=== PATIENT | male | born 1960 | race Caucasian/White ===

== ENCOUNTER 2017-04-08 16:12 | Inpatient (IN) | payer SELFPAY ==
[~2017-04-08] VITALS: Ht 182.9 cm; Wt 68.6 kg
[~2017-04-08 16:12] MED LIST: DEXAMETHASONE SOD PHOS 4 MG/ML VIAL IV ONE; GLYCOPYRROLATE 1 MG/5 ML SYRINGE IV PUSH ONE; LIDOCAINE HCL 1% PF 5 ML AMPULE OTHER ONE; MELO7.5T PO; METH750T2 PO; MIDAZOLAM HCL 2 MG/2 ML VIAL IV ONE; NEOSTIGMINE 3 MG/3 ML SYR IV ONE; ONDANSETRON HCL 4 MG/2 ML VIAL IV PUSH ONE; PHENYLEPH/NS 1000 MCG/10 ML SYR IV ONE; PROPOFOL 200 MG/20 ML AMP IV ONE; Z.0.NO CURRENT MEDS; ePHEDrine/NS 25 MG/5 ML SYR IV ONE
[2017-04-08 16:13] VITALS: PULSE 79; RESP 17
[2017-04-08] MEDS ORDERED: SODIUM CHLOR 0.9% 1000 ML INJ 1,000 ML IV SCH (16:14)
[2017-04-08] MEDS ORDERED: MORPHINE SULFATE 4 MG/ML INJ IV PUSH ONE (16:15)
[2017-04-08] MEDS ORDERED: ONDANSETRON HCL 4 MG/2 ML VIAL IVP ONE (16:15)
[2017-04-08] MEDS ORDERED: SODIUM CHLORIDE 0.9% FLUSH 10 ML FLUSH IV FLUSH PRN ×2 (16:15→18:15)
[2017-04-08] MEDS ORDERED: TETANUS/DIPHTHERIA TOXOID ADULT 0.5 ML VIAL IM ONE (16:15)
[2017-04-08] MEDS ORDERED: BUPIVACAINE HCL PF 0.5% 30 ML VIAL INFIL ONE (16:15)
[2017-04-08] MEDS ORDERED: ceFAZolin 2 GM PREMIX 50 ML IV ONE (16:15)
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
[2017-04-08 16:23] VITALS: BP 104/56; PULSE 72; RESP 22; O2SAT 95
--- NOTE | 2017-04-08 16:41 | PD ---
Physical Exam Date Seen by Provider: Apr 08, 2017 Narrative Left thumb amputation Data Data Last Documented VS Vital Signs Date Time Temp Pulse Resp B/P (MAP) Pulse Ox O2 Delivery O2 Flow Rate FiO2 04/08/17 16:23 72 22 104/56 (72) 95 Room Air Orders Orders Complete Blood Count With Diff (04/08/17 16:14) Comprehensive Metabolic Panel (04/08/17 16:14) Prothrombin Time / Inr (Pt) (04/08/17 16:14) Act Partial Throm Time (Ptt) (04/08/17 16:14) Iv Access Insert/Monitor (04/08/17 16:14) Ecg Monitoring (04/08/17 16:14) Oximetry (04/08/17 16:14) NPO (04/08/17 16:14) Morphine Inj (Morphine Inj) (04/08/17 16:15) Ondansetron Inj (Zofran Inj) (04/08/17 16:15) Sodium Chlor 0.9% 1000 Ml Inj (Ns 1000 M (04/08/17 16:14) Sodium Chloride 0.9% Flush (Ns Flush) (04/08/17 16:15) Electrocardiogram (04/08/17 16:14) Tetanus/Diphtheria Tox Adult (Tetanus/Di (04/08/17 16:15) Cefazolin 2 Gm Premix (Ancef 2 Gm Premix (04/08/17 16:15) Bupivacaine Pf 0.5% Inj (Marcaine Pf 0.5 (04/08/17 16:15) Finger ([id number]) (04/08/17 16:17) Ice/Cold Pack (04/08/17 16:17) MDM Supervised Visit with JIMI: Yes Narrative Course I, Dr. Dennis, have reviewed the advance practice practitioner's documentation and am in agreement, met with the patient face to face, made the diagnosis, and the medical decision making was done by me. *My assessment and Findings: This patient has an amputated distal tip of the left thumb Please see Charles Barfield PA-C's note for results of laboratory and radiographic evaluation, ED course, final diagnosis and disposition Diagnosis Primary Impression: Amputation of thumb, left, complicated Qualified Codes: S68.012A - Complete traumatic metacarpophalangeal amputation of left thumb, initial encounter Condition: Stable Vy Dennis MD Apr 08, 2017 16:41
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
[2017-04-08] MEDS ORDERED: ACETAMINOPHEN 1000 MG/100 ML 100 ML IV ONE (17:14)
[2017-04-08] MEDS ORDERED: METOCLOPRAMIDE HCL 10 MG/2 ML VIAL ONE (17:14)
[2017-04-08] MEDS ORDERED: FAMOTIDINE 20 MG/2 ML VIAL ONE (17:16)
[2017-04-08 17:21] LABS: BASOPHIL # 0.1 TH/MM3 (0-0.2); BASOPHIL % 0.7 % (0.0-2.0); EOSINOPHIL # 0.3 TH/MM3 (0-0.4); EOSINOPHIL % 2.6 % (0.0-4.0); HEMATOCRIT 41.7 % (39.0-51.0); HEMO FLAGS DIFF FINAL; LYMPH % 27.1 % (9.0-44.0); LYMPHOCYTE # 3.1 TH/MM3 (1.0-4.8); MEAN CELL VOLUME 94.2 FL (80.0-100.0); MEAN CORPUSCULAR HEMOGLOBIN 32.1 PG (27.0-34.0); MEAN CORPUSCULAR HGB CONC 34.1 % (32.0-36.0); MONO % 8.3 % (0.0-8.0); NEUT % 61.3 % (16.0-70.0); PLATELET COUNT 382 TH/MM3 (150-450); RED BLOOD COUNT 4.43 MIL/MM3 (4.50-5.90); RED CELL DISTRIBUTION WIDTH 14.2 % (11.6-17.2); WHITE BLOOD COUNT 11.5 TH/MM3 (4.0-11.0)
[2017-04-08 17:22] LABS: ALT (GPT) 14 U/L (12-78)
[2017-04-08 17:24] LABS: ALKALINE PHOSPHATASE 85 U/L (45-117); TOTAL BILIRUBIN ADULT 0.3 MG/DL (0.2-1.0)
[2017-04-08 17:31] LABS: APTT (PATIENT) 34.8 SEC (24.3-30.1); PROTHROMBIN TIME - PATIENT 10.9 SEC (9.8-11.6)
[2017-04-08 17:43] LABS: ANION GAP 7 MEQ/L (5-15); AST (GOT) 19 U/L (15-37); BICARBONATE 23.7 MEQ/L (21.0-32.0); BLOOD UREA NITROGEN 13 MG/DL (7-18); CHLORIDE 106 MEQ/L (98-107); GLOMERULAR FILTRATION RATE 77 ML/MIN (>89); POTASSIUM 3.9 MEQ/L (3.5-5.1); SODIUM (NA) 137 MEQ/L (136-145)
[2017-04-08] MEDS ORDERED: DIPH25CA PO (17:45)
[2017-04-08] MEDS ORDERED: TYLE325T PO (17:45)
[2017-04-08 17:53] VITALS: TEMP 98
[2017-04-08] MEDS ORDERED: SENNOSIDES 8.6 MG TAB PO PRN (18:15)
[2017-04-08] MEDS ORDERED: ACETAMINOPHEN/HYDROcodone 325 MG/5 MG TAB PO PRN (18:15)
[2017-04-08] MEDS ORDERED: LACTULOSE SYRUP 20 GM/30 ML CUP PO PRN (18:15)
[2017-04-08] MEDS ORDERED: MAGNESIUM HYDROXIDE SUSP 30 ML CUP PO PRN (18:15)
[2017-04-08] MEDS ORDERED: NALOXONE HCL 0.4 MG/ML AMP IV PUSH PRN (18:15)
[2017-04-08] MEDS ORDERED: ACETAMINOPHEN 325 MG TAB PO PRN (18:15)
[2017-04-08] MEDS ORDERED: HYDROmorphone HCL PF 1 MG/ML VIAL IV PUSH PRN ×3 (18:15)
[2017-04-08] MEDS ORDERED: BISACODYL 10 MG SUPP RECTAL PRN (18:15)
[2017-04-08] MEDS ORDERED: LIDOCAINE HCL 2% 50 ML VIAL ONE (18:23)
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
[2017-04-08] MEDS ORDERED: LORazepam 1 MG TAB PO PRN (18:30)
[2017-04-08] MEDS ORDERED: FLUMAZENIL 0.5 MG/5 ML VIAL IV PUSH PRN (18:30)
[2017-04-08] MEDS ORDERED: LORazepam 2 MG TAB PO PRN (18:30)
[2017-04-08] MEDS ORDERED: LORazepam 2 MG/ML VIAL IV PUSH PRN ×4 (18:30)
[2017-04-08] MEDS ORDERED: ceFAZolin INJ 1,000 MG VIAL ONE (18:35)
--- NOTE | 2017-04-08 20:52 | PD.OP ---
Operative Report Preoperative Diagnosis: (1) Amputation of thumb, left, complicated Postoperative Diagnosis: (1) Amputation of thumb, left, complicated Procedure: exploration, debridement, and palmar advancement flap (Rosalino) cover left thumb Anesthesia: general Surgeon: Don So Ice Platform Supervisor(s): lucretia Operation and Findings: avulsion of the pulp with exposed distal phalanx left thumb Don So MD Apr 08, 2017 20:52
[2017-04-08] MEDS: SODIUM CHLORIDE 0.9% FLUSH 10 ML FLUSH IV FLUSH SCH (21:00)
[2017-04-08] MEDS: ONDANSETRON HCL 4 MG/2 ML VIAL IVP PRN (21:12)
[2017-04-08] MEDS ORDERED: DO NOT ADM ANY ANTICOAGULANT DRUGS PRN (21:15)
[2017-04-08] MEDS: SODIUM CHLOR 0.9% 1000 ML INJ 1,000 ML IV SCH (21:20)
[2017-04-08 22:03] VITALS: BP 111/62; PULSE 67; RESP 18; TEMP 95.5; O2SAT 97
[2017-04-08] MEDS: DOCUSATE SODIUM 50 MG/SENNA 8.6 MG TAB PO SCH (22:11)
--- NOTE | 2017-04-08 22:48 | MB ---
cc: DAYAN MENA MD DATE OF CONSULTATION 04/08/17 REASON FOR CONSULTATION Left thumb amputation. HISTORY OF PRESENT ILLNESS The patient is a 56-year-old right-hand dominant male who presented to the ED with complaints of crushing injury to the left thumb with amputation. 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 The patient brought the amputated part in a separate ice pack. Complains of pain and bleeding from the region. PAST MEDICAL HISTORY/PAST SURGICAL HISTORY As noted. Past surgical history significant for facial and reconstruction surgery. PHYSICAL EXAMINATION The patient is alert, oriented x3. bilateral upper extremity shows multiple skin lesions. Examination of left thumb reveals avulsion type of amputation of the soft tissue part with the exposed distal phalanx. The soft tissue from just distal to the IP joint on the volar aspect along with the distal half of the nail plate and nail are amputated with exposed distal phalanx. He is able to actively flex the IP joint of the thumb. He has intact extension of the IP joint of the thumb. The digital nerve and vessels were exposed within the soft tissue. The amputated part is in a separate ice pack. This consists of avulsed almost pulp tissue with hyponychium and distal half of the nail bed and nail plate. X-rays of the left thumb were reviewed, shows soft tissue defect over the left thumb with exposed distal phalanx. There is a cortical defect along the volar aspect of the distal phalanx tuft region. ASSESSMENT A 56-year-old male with a soft tissue avulsion type amputation of the left thumb with exposed distal phalanx. PLAN Take the patient emergently for surgery which would entail exploration, wash, debridement and flap closure of the exposed distal phalanx. The patient was explained risks and benefits of the procedure. Surgical options given to the patient was either palmar advancement flap versus cross-finger flap. The patient understands the risks and benefits of the procedure. Dayan Mena MD SE/ /9:00 PM /10:36 PM
--- NOTE | 2017-04-08 23:03 | MP ---
cc: DAYAN MENA DATE OF SURGERY 04/08/17 PREOPERATIVE DIAGNOSIS Partial traumatic amputation left thumb. POSTOPERATIVE DIAGNOSIS Partial traumatic amputation left thumb. PROCEDURE Exploration, debridement, palmar advancement flap (Rosalino) for flap closure left thumb. SURGEON Dr. Darcie Mena ANESTHESIA General ESTIMATED BLOOD LOSS Minimal TOURNIQUET TIME 77 minutes at 250 mmHg DISPOSITION To PACU stable. PROCEDURE IN DETAIL The patient is a 56-year-old right-hand dominant male who presented to the ED with complaints of laceration to the left thumb. The patient states he was working at his home and had a crushing injury to the left thumb. The patient avulsed his thumb pulp and presented to the ED with avulsed part of the thumb in a icepack. On examination, he had soft tissue avulsion from the pulp region about 0.5 cm distal to the IP joint extending to the tip and through the half of the nail plate. The nail plate along with the pulp tissue is preserved in the icepack. He had exposed distal phalanx. He had intact flexion and extension of the IP joint of the thumb. X-ray showed avulsion of the soft tissue with exposed distal phalanx. The patient was consented for exploration, wash, revision amputation and flap closure of the left thumb. The patient was explained risks and benefits of the procedure. The patient was brought to the operating room under general anesthesia. The left upper extremity was thoroughly prepped and draped. Limb was exsanguinated using Esmarch tourniquet. Tourniquet was then inflated 250 mmHg. Intraoperative findings included complete avulsion of the pulp about 1 centimeter distal to the IP joint of the thumb and through the half of the nail plate with exposed distal phalanx. The defect measured about 2 cm. An excisional debridement of devitalized tissue and the tip of the distal phalanx was rongeured to a smooth surface. Decision was made to proceed with palmar advancement Rosalino flap. Mid axial incisions were marked along the ulnar and radial aspect of the thumb extending to the MP joint region of the thumb. Incision was made over the proposed incision site. Soft tissue dissection was carried out, in a distal to proximal direction just volar to the flexor tendon sheath. Skin flaps around the skin and subcutaneous flap along with neurovascular bundle were elevated from the volar surface of the thumb up to the MP joint region. The MP and IP joint of the thumb were flexed and mobilized flap was brought in to cover the exposed distal phalanx. I was able to obtain coverage with slight flexion of the MP and IP joint of the thumb. Thorough wash was given. The palmar flap was then approximated to the dorsal soft tissues using 5-0 Vicryl stitches. The lateral and ulnar incisions were then approximated using 5-0 nylon interrupted nylon stitches in an interrupted fashion. Tourniquet was deflated. Total tourniquet time was 77 minutes. He had good distal circulation. The flap was pink. He did have residual wound at the distal tip, but the exposed bone was covered with soft tissues. The wrist and wound will be allowed to heal by secondary intention. About 5 mL of local anesthesia containing. 2% lidocaine __% Marcaine was injected across the base of the dermis digital block. Xeroform bacitracin dressing applied. Bulky hand dressing was applied which was held in place by Sof-Rol and dorsal block splint was applied keeping the MP and IP joint of thumb infection. The patient was recovered, sent to recovery in stable condition. Plan will be to discharge the patient tomorrow and follow up in the office in two days' time. Dayan Mena MD SE/ /8:53 PM /10:50 PM
[2017-04-08 23:13] VITALS: BP 103/58; PULSE 71; RESP 18; TEMP 96.4; O2SAT 95
[2017-04-09 01:32] VITALS: O2SAT 95
[2017-04-09] MEDS: ACETAMINOPHEN/HYDROcodone 325 MG/10 MG TAB PO PRN ×2 (01:37→09:07)
[2017-04-09 03:48] VITALS: BP 105/61; PULSE 75; RESP 18; TEMP 96.7; O2SAT 96
[2017-04-09] MEDS: SODIUM CHLOR 0.9% 1000 ML INJ 1,000 ML IV SCH (04:53)
[2017-04-09] MEDS: HYDROmorphone HCL PF 2 MG/ML VIAL IV PUSH PRN ×3 (05:30→13:24)
[2017-04-09] MEDS: ONDANSETRON HCL 4 MG/2 ML VIAL IVP PRN ×2 (05:36→09:11)
[2017-04-09 06:32] LABS: AUTOMATED NEUTROPHIL # 10.5 TH/MM3 (1.8-7.7); BASOPHIL # 0.1 TH/MM3 (0-0.2); BASOPHIL % 0.9 % (0.0-2.0); HEMATOCRIT 39.3 % (39.0-51.0); HEMO FLAGS DIFF FINAL; LYMPH % 5.5 % (9.0-44.0); LYMPHOCYTE # 0.6 TH/MM3 (1.0-4.8); MEAN CORPUSCULAR HEMOGLOBIN 32.2 PG (27.0-34.0); MEAN CORPUSCULAR HGB CONC 33.9 % (32.0-36.0); MONO % 1.3 % (0.0-8.0); NEUT % 92.3 % (16.0-70.0); PLATELET COUNT 336 TH/MM3 (150-450); RED BLOOD COUNT 4.13 MIL/MM3 (4.50-5.90); WHITE BLOOD COUNT 11.4 TH/MM3 (4.0-11.0)
[2017-04-09 08:00] VITALS: BP 101/53; PULSE 66; RESP 18; TEMP 97; O2SAT 96
[2017-04-09] MEDS: DOCUSATE SODIUM 50 MG/SENNA 8.6 MG TAB PO SCH (09:15)
[2017-04-09] MEDS: SODIUM CHLORIDE 0.9% FLUSH 10 ML FLUSH IV FLUSH SCH (09:20)
[2017-04-09] MEDS ORDERED: HYDROmorphone HCL PF 2 MG/ML VIAL IV PUSH PRN (10:00)
[2017-04-09] MEDS ORDERED: HYDROmorphone HCL PF 0.5 MG/0.5 ML SYRINGE IV PUSH PRN (10:00)
[2017-04-09 12:00] VITALS: BP 150/69; PULSE 50; RESP 18; TEMP 96; O2SAT 94
[2017-04-09] MEDS ORDERED: PERC7.5T13 PO (12:59)
[2017-04-09] MEDS ORDERED: CEPH-461 PO (12:59)
--- NOTE | 2017-04-09 13:03 | HHI.PR ---
Subjective Remarks C/O OIF PAIN , HE WANTED 30 DAYS SUPPLY OF PAIN MEDS WHEN HE GETS DISCHARGED I TOLD HIM WE CANNOT DO THAT AND I WILL GIVE HIM ENOUGH UNTIL HE SEES THE SURGEON Objective Vitals Vital Signs Date Time Temp Pulse Resp B/P (MAP) Pulse Ox O2 Delivery O2 Flow Rate FiO2 04/09/17 08:00 97.0 66 18 101/53 (69) 96 04/09/17 05:55 18 04/09/17 03:48 96.7 75 18 105/61 (76) 96 04/09/17 02:47 18 04/09/17 01:32 95 21 04/08/17 23:13 96.4 71 18 103/58 (73) 95 04/08/17 22:03 95.5 67 18 111/62 (78) 97 04/08/17 21:39 97.5 64 14 112/63 (79) 96 Room Air 04/08/17 21:30 64 14 100/54 (69) 95 Room Air 04/08/17 21:15 64 14 114/64 (81) 95 Room Air Nasal Cannula 04/08/17 21:00 98.1 79 14 103/55 (71) 94 Nasal Cannula 4 04/08/17 18:53 04/08/17 17:53 98.0 04/08/17 17:42 20 04/08/17 16:23 72 22 104/56 (72) 95 Room Air 04/08/17 16:13 79 17 I/O 04/08/17 04/08/17 04/08/17 04/09/17 04/09/17 04/09/17 07:00 15:00 23:00 07:00 15:00 23:00 Intake Total 2770 ml 720 ml Output Total 20 ml 250 ml Balance 2750 ml 470 ml Intake Oral 120 ml 720 ml IV Total 1050 ml Other 1600 ml Output Urine Total 0 ml 250 ml Estimated Blood Loss 20 ml # Voids 1 # Bowel Movements 0 0 Result Diagram: 04/09/17 0520 04/08/17 9830 Objective Remarks GENERAL: This is a well-nourished, well-developed patient, in no apparent distress. CARDIOVASCULAR: Regular rate and rhythm without murmurs, gallops, or rubs. RESPIRATORY: Clear to auscultation. Breath sounds equal bilaterally. No wheezes , rales, or rhonchi. GASTROINTESTINAL: Abdomen soft, non-tender, nondistended. Normal active bowel sounds MUSCULOSKELETAL: Extremities without clubbing, cyanosis, or edema. LEFT HAND IN [place] NEURO: Alert & Oriented x4 to person, place, time, situation. Moves all ext x4 A/P Assessment and Plan 56 years old male admitted with Crushing type injury laceration with tip of the left thumb amputation appreciate Hand surgery consul s/p surgical debridement and flap closing , cleared by the surgeon to be dc on keflex for 5 days Patient was given morphine cont with [place] and Dilaudid for pain scale Tobacco and alcohol abuse: Patient counseled, will place on CIWA protocol DVT prophylaxis with SCD, Discharge Planning Discharge patient to home Condition on discharge: Improved Regular Diet as tolerated Ad Leilani activity Rx written:keflex , percocet Follow-up with primary care physician Marquis Day MD Apr 09, 2017 13:03
--- NOTE | 2017-04-09 13:35 | EKG ---
Date Performed: 04/08/2017 Time Performed: 16:57:06 PTAGE: 56 years EKG: Sinus rhythm POSSIBLE LEFT ATRIAL ENLARGEMENT BORDERLINE ECG NO PREVIOUS TRACING DOCTOR: Alva Espinal Interpretating Date/Time 04/09/2017 13:34:53
[2017-04-09 14:34] VITALS: O2SAT 96
[2017-04-09] MEDS ORDERED: HEPARIN SODIUM - SQ 10,000 UNITS/ML VIAL SQ SCH (18:15)
== END 2017-04-09 15:35 | disposition home or self-care (01) | DRG 905 ==
LOC: HOR 16:12 → NEDA 17:51 → N06B 21:52
PROVIDERS: ADMIT Hospitalist; ATTEND Hospitalist
PROC: 0PBS0ZZ Excision of Left Thumb Phalanx, Open Approach (ICD-10-PCS; 2017-04-08)
PROC: 0HXGXZZ Transfer Left Hand Skin, External Approach (ICD-10-PCS; principal; 2017-04-08 18:36)
DX: S68.522A Partial traumatic transphalangeal amputation of left thumb, initial encounter (principal); F17.210 Nicotine dependence, cigarettes, uncomplicated; W23.0XXA Caught, crushed, jammed, or pinched between moving objects, initial encounter; I25.2 Old myocardial infarction; Y92.009 Unspecified place in unspecified non-institutional (private) residence as the place of occurrence of the external cause
CPT/HCPCS: 64450; 73140; 80053; 85025; 85610; 85730; 90471; 90714; 93005; 96365; 96375; J0131; J0690; J1100; J1170; J2250; J2270; J2370; J2405; J2710; J2765; J3010; J7030